=== PATIENT | female | born 1985 | race Caucasian/White ===

== ENCOUNTER 2021-07-17 12:55 | Emergency (ER) | payer BC, OTHER ==
[~2021-07-17] VITALS: Ht 167.6 cm; Wt 56.7 kg
[2021-07-17 13:00] VITALS: BP 105/62
[2021-07-17] MEDS ORDERED: TESSALON PERLE100 MG PO (14:07)
--- NOTE | 2021-07-18 07:06 | EKG ---
[address] [address] [place] [place] [address] ELECTROCARDIOGRAM REPORT Name: KARLA SYKES [id number] Admission: 07/17/21 Attend Phys: Discharge: 07/17/21 Date of : 81 Report #: [id number] [facility] ED Test Date: 2021-07-17 Test Time: 13:11:58 Pat Name: KARLA SYKES Department: Room: Gender: F E Commerce Specialist: NETO : 1985 Requested By: Tamiko Peralta Order Number: [id number] MD: Ricardo Lepe Measurements Intervals Sabael Rate: 93 P: 63 VA: 142 QRS: -9 QRSD: 94 T: 42 QT: 347 QTc: 432 Interpretive Statements Sinus rhythm Probable left atrial enlargement Borderline low voltage, extremity leads RSR' in V1 or V2, probably normal variant Minimal ST depression, lateral leads No previous ECG available for comparison Electronically Signed On 07-18-2021 7:06:00 [employer] by Ricardo Lepe [email or web address] <ELECTRONICALLY SIGNED> By: Ricardo Lepe MD, [facility] 07/18/21 0706 [id number] 10 Ricardo Lepe MD, FACC /EPI
== END 2021-07-17 13:55 | disposition home or self-care (01) ==
LOC: EDSEX 12:55 → ER 12:55
PROVIDERS: Student in an Organized Health Care Education/Training Program
DX: U07.1 COVID-19 (principal); J06.9 Acute upper respiratory infection, unspecified